=== PATIENT | male | born 1935 | race Caucasian/White ===

== ENCOUNTER 2017-02-26 20:28 | Inpatient (IN) ==
[2017-02-26] MEDS ORDERED: NS 1,000 ML IV ONE (20:54)
[2017-02-26 21:30] LABS: MANUAL DIFF NEEDED? NO
[2017-02-26 21:39] LABS: BASO% 0.7 % (0.0-0.8); EOS# 0.03 X1000 (0.0-0.7); EOS% 0.4 % (0.0-10.0); HEMATOCRIT 40.2 % (42.0-52.0); HEMOGLOBIN 14.3 g/dL (14.0-18.0); IMM GRAN# 0.04 X1000 (0.0-0.04); IMM GRAN% 0.5 % (0.0-0.5); LYMPH# 1.13 X1000 (1.2-3.4); LYMPH% 13.7 % (20.5-51.1); MCH 32.2 PG (27-31); MCHC 35.6 g/dL (33-37); MCV 90.5 FL (81-99); MONO# 0.65 X1000 (0.11-0.59); MONO% 7.9 % (1.7-9.3); NEUT% 76.8 % (42.2-75.2); PLT 270 X1000 (130-400); RBC 4.44 XMIL (4.7-6.1)
[2017-02-26 22:31] LABS: ALBUMIN 4.2 g/dL (3.5-5.0); CALCIUM 9.9 mg/dL (8.8-10.2); POTASSIUM 4.1 mmol/L (3.5-5.1); TOTAL BILIRUBIN 0.55 mg/dL (0.20-1.00); TOTAL PROTEIN 7.3 g/dL (6.3-8.3)
[2017-02-26 22:35] LABS: URINE CULTURE NEEDED? NO; URINE MICRO REVIEW NEEDED? NO; URINE SOURCE CLEAN CATCH
[2017-02-26 22:39] LABS: BILIRUBIN URINE NEGATIVE (NEGATIVE); BLOOD URINE NEGATIVE (NEGATIVE); COLOR STRAW; GLUCOSE URINE >1000 mg/dL (NEGATIVE); LEUKOCYTES URINE NEGATIVE (NEGATIVE); NITRITE URINE NEGATIVE (NEGATIVE); PROTEIN URINE NEGATIVE (NEGATIVE); SP GRAVITY URINE 1.021; TURBIDITY URINE CLEAR (CLEAR); UR EPITHELIAL CELLS <10 /HPF (<10); URINE BACTERIA NEGATIVE /HPF; URINE RBC <10 /HPF (<10); URINE WBC <10 /HPF (<10); UROBILINOGEN URINE NORMAL (NORMAL)
[2017-02-26] MEDS ORDERED: NS 1,000 ML IV SCH (22:55)
[2017-02-26] MEDS ORDERED: NS 1,000 ML ONE (23:01)
[2017-02-27 02:46] LABS: AGAP 21; BUN 24 mg/dL (8-22); CHLORIDE 93 mmol/L (98-107); COSMO 283; POTASSIUM 4.5 mmol/L (3.5-5.1); SODIUM 131 mmol/L (136-145); TCO2 17 mmol/L (25-35)
[2017-02-27] MEDS ORDERED: POTASSIUM CHLORIDE 40 MEQ in 1/2 NS 1,000 ML IV SCH (03:13)
[2017-02-27] MEDS ORDERED: HUMULIN R 100 UNIT in NS 100 ML IV SCH (03:15)
[2017-02-27] MEDS ORDERED: D50W SYRINGE IV PRN (04:37)
[2017-02-27] MEDS ORDERED: TYLENOL PO PRN (04:37)
[2017-02-27] MEDS ORDERED: HUMULIN R IV ONE (04:37)
[2017-02-27] MEDS ORDERED: HUMULIN R 100 UNIT in NS 99 ML IV SCH (04:37)
[2017-02-27] MEDS ORDERED: D5 1/2 NS + KCL 40 MEQ 1,000 ML IV SCH (04:37)
[2017-02-27] MEDS ORDERED: ZOFRAN PO PRN (04:37)
[2017-02-27] MEDS ORDERED: ZOFRAN IV PRN (04:37)
[2017-02-27 04:41] LABS: HEMOGLOBIN A1C 11.7 % (4.8-6.0)
[2017-02-27 04:44] LABS: AGAP 13; BUN 20 mg/dL (8-22); CALCIUM 8.8 mg/dL (8.8-10.2); CHLORIDE 94 mmol/L (98-107); COSMO 279; POTASSIUM 3.9 mmol/L (3.5-5.1); SODIUM 132 mmol/L (136-145); TCO2 25 mmol/L (25-35)
[2017-02-27] MEDS: POTASSIUM CHLORIDE 40 MEQ in 1/2 NS 1,000 ML IV SCH ×3 (05:14→14:07)
[2017-02-27] MEDS: LOVENOX SUBQ SCH (05:19)
[2017-02-27 05:49] LABS: HDL 43 mg/dL (35-55); LDL 91 mg/dL; TRIGLYCERIDES 183 mg/dL (39-160); VLDL 37 mg/dL
[2017-02-27 06:44] LABS: AGAP 15; BUN 19 mg/dL (8-22); CALCIUM 8.6 mg/dL (8.8-10.2); CHLORIDE 94 mmol/L (98-107); COSMO 278; POTASSIUM 3.7 mmol/L (3.5-5.1); SODIUM 133 mmol/L (136-145); TCO2 24 mmol/L (25-35)
[2017-02-27] MEDS: BRILINTA PO SCH ×2 (08:41→21:23)
[2017-02-27] MEDS: ASPIRIN PO SCH (08:41)
[2017-02-27] MEDS: PLENDIL PO SCH (08:41)
[2017-02-27] MEDS: HYZAAR 50/12.5 MG PO SCH (08:41)
[2017-02-27] MEDS: CENTRUM SILVER PO SCH (08:41)
[2017-02-27] MEDS: NS 1,000 ML IV SCH ×2 (08:42→19:27)
[2017-02-27] MEDS: LEVEMIR SUBQ SCH ×2 (08:45→21:24)
[2017-02-27] MEDS: HUMULIN R SUBQ SCH ×3 (11:24→21:23)
--- NOTE | 2017-02-27 11:43 | HISTORY AND PHYSICAL ---
PRIMARY CARE PHYSICIAN: Dr. Marvin Welsh CHIEF COMPLAINT: Generalized weakness, polyuria, polydipsia. HISTORY OF PRESENT ILLNESS: Mr. Dang is a 81-year-old male with past medical history of prostate cancer status post radiation treatment the last one in 2015, hypertension and now diabetes who comes to the hospital complaining of one week of polyuria and polydipsia with increased fatigue. The patient states that approximately 2-3 months ago when he went to see his PCP his A1c was 6.5. Since then, he has been asymptomatic until recently. He denies any change in vision, dizziness except polyuria and polydipsia and generalized weakness. The patient noticed that for the last 2 weeks he has been craving ice water and therefore has been urinating more than usual. REVIEW OF SYSTEMS: Negative except as stated above. In the emergency room, he was given 2 L of normal saline and 10 units of insulin. PAST MEDICAL HISTORY: Incontinence, prostate cancer status in April 2016. Hypertension. PAST SURGICAL HISTORY: Stent placement in both legs. Multiple back surgeries in the lumbar and cervical region. ALLERGIES: Sulfa, antibiotics and penicillin. HOME MEDICATIONS: 1. Lupron 22.5 mg 1 dose IM. 2. Losartan/hydrochlorothiazide 100 mg/25 mg 1 tablet oral daily. 3. Felodipine 10 mg oral daily. 4. 90 mg p.o. twice a day. 5. Multivitamins. 6. Simvastatin 40 mg p.o. at bedtime. 7. Aspirin 81 mg tablet oral daily. SOCIAL HISTORY: The patient stopped smoking in 1992. Denies using alcohol or drugs. FAMILY HISTORY: Mother of colon cancer and father had a myocardial infarction. PHYSICAL EXAMINATION: VITAL SIGNS: Temperature 97.7 degrees, pulse 77, respirations 19, blood pressure 116/79, oxygen saturation 97% on room air. GENERAL: Patient is alert and oriented x3. No acute distress. HEENT: Head is normocephalic, atraumatic. Eyes, PERRLA. Dryish mucous membranes. NECK: Supple. PULMONARY: Well ventilated bilaterally. No wheezing, rales, or crackles. CARDIOVASCULAR: S1, S2. No rubs, murmurs, or gallops. ABDOMEN: Soft, nondistended, nontender. EXTREMITY: No lower extremity edema. Normal range of motion. NEUROLOGIC: Cranial nerves 2-12 grossly intact. No focal deficits. PSYCHIATRIC: Normal mood and affect. LABORATORY DATA: White blood cell count 8.2, hemoglobin 14.3, hematocrit 40.2, platelets 270. Sodium 127, corrected sodium 135, potassium 4.1, anion gap 24, BUN 29, creatinine 1.3. Initial glucose 617. LFTs within normal limits. Urinalysis is negative for UTI, positive for glucose greater than 1000 and positive for ketones. No imaging was done. ASSESSMENT AND PLAN: 1. Hyperosmolar hyperglycemic state. According to the patient, he was not aware that he is diabetic. In the emergency room he already received 2 L of normal saline. A second chemistry set is pending. For right now, we will continue patient on fluids. We will likely switch him to half-normal saline until he is glucose levels reach approximately 300 and then we will likely switch him to 5% dextrose with half-normal saline. We will start insulin at 7.4 units/hour and we will start replacing potassium as well. 2. Diabetes type 2. A1c is pending. Once the anion gap closes and the patient is no longer an insulin drip, he will likely need basal insulin and diabetic teaching. 3. Acute kidney injury. Likely secondary due to the hyperosmolar hyperglycemic state. We will provide fluids and monitor renal function. 4. Hypertension. We will continue home medication losartan/hydrochlorothiazide. cc: MD Marvin Wu
[2017-02-27 12:08] LABS: AGAP 15; BUN 18 mg/dL (8-22); CALCIUM 8.7 mg/dL (8.8-10.2); CHLORIDE 96 mmol/L (98-107); COSMO 283; POTASSIUM 4.6 mmol/L (3.5-5.1); SODIUM 136 mmol/L (136-145); TCO2 25 mmol/L (25-35)
--- NOTE | 2017-02-27 15:24 | PROGRESS NOTE ---
DATE: 02/27/2017 Dictating progress note MR Purvis and emily counters [id number]. SUBJECTIVE: Mr. Dang is a 81-year-old was brought I think early this morning or yesterday, his doctor is Dr. Armaan Welsh, he had generalized weakness, polyuria, polydipsia. PAST MEDICAL HISTORY: Of prostate cancer status post radiation treatment last 1 was 2015, hypertension and new onset diabetes. He has been told he had been prediabetic I think his last hemoglobin A1c was 6.5 but he presented after 2 weeks of craving water, polydipsia, polyuria, just generally feeling bad and found to have hyperosmolar hyperglycemia, was given some fluids and he has felt much better. Began on some insulin. EXAM: Vital signs: Today his son was in the room, temperature 98 degrees, pulse 63, respirations 18, blood pressure 145/63. Eyes: Pupils are equal, round. Lungs: Clear in all lung samaniego. Cardiovascular: Regular rhythm, rate without murmur, S3. Abdomen: Soft. Skin: Warm and dry. Height 5 feet 7 inches. LAB: Chemistries this morning sodium 136, potassium 4.6, chloride 96, BUN 18, creatinine 0.8, blood sugars 310, 270, 290, 215, 268, 258, when he 1st presented I think his blood sugar was in the 600s, no real acidosis, lipid profile was obtained, LDL was 91, HDL 43. ASSESSMENT/PLAN: 1. Hyperosmolar hyperglycemia doing very well. He began on some insulin, will begin on I think split dosing and he is on insulin detemir 30 units subcu b.i.d. and I may go to 70/30 start that in the morning. 2. He is on Brilinta, think this is for his legs. 3. Hypertension. Blood pressure well controlled. 4. History of prostate cancer. His lab, renal function looks good. cc: Jonathan Bowman MD
[2017-02-27 15:45] LABS: AGAP 11; BUN 19 mg/dL (8-22); CALCIUM 8.8 mg/dL (8.8-10.2); CHLORIDE 96 mmol/L (98-107); COSMO 275; SODIUM 133 mmol/L (136-145); TCO2 26 mmol/L (25-35)
[2017-02-27 19:04] LABS: CALCIUM 8.5 mg/dL (8.8-10.2); POTASSIUM 3.5 mmol/L (3.5-5.1)
[2017-02-27] MEDS: ZOCOR PO SCH (21:23)
[2017-02-28 05:06] LABS: MANUAL DIFF NEEDED? NO
[2017-02-28 05:08] LABS: BASO% 0.6 % (0.0-0.8); EOS# 0.27 X1000 (0.0-0.7); EOS% 3.9 % (0.0-10.0); HEMATOCRIT 36.6 % (42.0-52.0); HEMOGLOBIN 13.2 g/dL (14.0-18.0); IMM GRAN# 0.03 X1000 (0.0-0.04); IMM GRAN% 0.4 % (0.0-0.5); LYMPH# 0.97 X1000 (1.2-3.4); LYMPH% 14.2 % (20.5-51.1); MCH 32.5 PG (27-31); MCHC 36.1 g/dL (33-37); MCV 90.1 FL (81-99); MONO# 0.62 X1000 (0.11-0.59); MONO% 9.1 % (1.7-9.3); MPV 11.3 FL (7.4-10.4); NEUT% 71.8 % (42.2-75.2); PLT 198 X1000 (130-400); RBC 4.06 XMIL (4.7-6.1)
[2017-02-28 05:20] LABS: HEMOGLOBIN A1C 11.5 % (4.8-6.0)
[2017-02-28 05:37] LABS: AGAP 10; ALBUMIN 3.4 g/dL (3.5-5.0); BUN 15 mg/dL (8-22); CHLORIDE 99 mmol/L (98-107); COSMO 272; MAGNESIUM 2.1 mg/dL (1.5-2.7); POTASSIUM 3.2 mmol/L (3.5-5.1); SODIUM 134 mmol/L (136-145); TCO2 25 mmol/L (25-35)
[2017-02-28 05:44] LABS: FREE T4 1.24 ng/dL (0.93-1.70)
[2017-02-28] MEDS: HUMULIN R SUBQ SCH ×4 (06:19→20:33)
[2017-02-28] MEDS: NS 1,000 ML IV SCH ×2 (07:52→17:48)
[2017-02-28] MEDS ORDERED: POTASSIUM CHLORIDE 20% LIQUID PO ONE ×3 (08:29→14:00)
--- NOTE | 2017-02-28 09:11 | PROGRESS NOTE ---
DATE: 02/28/2017 SUBJECTIVE: This is a 81-year-old. Feels much better this morning. No nausea. No abdominal discomfort. He did describe a little discomfort in the back of his throat and says about 2 hours after eating he has a little bit of discomfort around the xiphoid process, epigastric area, but overall feels much better. He is awake and alert. He is oriented x3. OBJECTIVE: Vital signs: On exam today, sitting up on the side of bed eating his breakfast. Vital signs: Temperature 97.8 degrees, pulse 64, respirations 18, blood pressure 143/57. HEENT: His conjunctivae are pink. Neck: CVP less than 6 cm. Lungs: Clear in all lung samaniego. Cardiovascular: Regular rhythm and rate without murmur or S3. Abdomen: Soft. Skin: Warm and dry. Intake and output: Good urine output, over 3 L. LAB: From this morning, white count 6,840, hematocrit 36, platelet count 198,000. Sodium 134, potassium 3.2, chloride 99, BUN 15, creatinine 0.9, magnesium is 2.1. Calculated A1c was 11.5. Blood sugar is coming down to the 100s, between 100 and 150 range. The last 2 blood sugars were 150 and 105. ASSESSMENT AND PLAN: 1. Hyperosmolar hyperglycemia. Getting plenty of fluid. Renal function good. Blood sugar is coming down nicely. Was started detemir 30 units b.i.d. We will watch and see what his sugars do today. I think he can probably go home tomorrow. I will continue normal saline at 100 mL an hour. No sign of acidosis. 2. Hypercholesterolemia. Aware. 3. He is on Brilinta and I believe that is for peripheral vascular disease. 4. To review his past medical history, he has had a stent placed in both legs, multiple back surgeries in the lumbar and cervical region, history of prostate cancer with radiation treatment. We are going to see if we can stop all of his lab. I do think we will supplement some potassium today. cc: Jonathan Bowman MD
[2017-02-28] MEDS: HYZAAR 50/12.5 MG PO SCH (09:17)
[2017-02-28] MEDS: BRILINTA PO SCH ×2 (09:18→20:33)
[2017-02-28] MEDS: CENTRUM SILVER PO SCH (09:18)
[2017-02-28] MEDS: PLENDIL PO SCH (09:18)
[2017-02-28] MEDS: LEVEMIR SUBQ SCH ×2 (09:18→20:33)
[2017-02-28] MEDS: ASPIRIN PO SCH (09:18)
[2017-02-28] MEDS: LOVENOX SUBQ SCH (09:21)
[2017-02-28] MEDS ORDERED: INSULIN PEN NEEDLES ONE (20:20)
[2017-02-28] MEDS: ZOCOR PO SCH (20:33)
[2017-03-01] MEDS: NS 1,000 ML IV SCH (03:43)
[2017-03-01] MEDS: HUMULIN R SUBQ SCH (06:23)
[2017-03-01 08:09] VITALS: BP 166/78
[2017-03-01] MEDS: BRILINTA PO SCH (08:22)
[2017-03-01] MEDS: LOVENOX SUBQ SCH (08:22)
[2017-03-01] MEDS: ASPIRIN PO SCH (08:22)
[2017-03-01] MEDS: CENTRUM SILVER PO SCH (08:22)
[2017-03-01] MEDS: PLENDIL PO SCH (08:22)
[2017-03-01] MEDS: LEVEMIR SUBQ SCH (08:23)
[2017-03-01] MEDS: HYZAAR 50/12.5 MG PO SCH (08:23)
--- NOTE | 2017-03-01 09:09 | DISCHARGE SUMMARY ---
ADMISSION DATE: 02/27/2017 DISCHARGE DATE: 03/01/2017 PRIMARY CARE PHYSICIAN: Marvin Welsh. HOSPITAL COURSE: He came in on 02/27/2017 with general weakness, polyuria, and polydipsia. He has a history of prostate cancer status post radiation treatment. Last one was in 2016. He was told he had prediabetes or dysmetabolic syndrome, I believe and presented to the hospital with a sugar of 600, and 1 to 2-week history of polyuria or polydipsia, increased fatigue, and there was some confusion, found to be in hyperosmolar- hyperglycemic condition, admitted, given IV fluids and started on IV insulin drip until his sugars came below 200, then they put him on sliding scale insulin, Humulin regular. He was begun on Levemir insulin twice a day. [place] he was ready go home on 03/01/2017. I want him to follow up with his sugars, check sugars once a day, in a pattern schedule, try to check-in before breakfast, lunch, supper, and then at bedtime. He is on insulin, detemir 30 units subcutaneously b.i.d. If you look at his last sugars, he is 355, 218, 134, and 10, so appears to be coming down nicely. LAB: On the , creatinine was 0.9. I did check a hemoglobin A1c, and it was 11. Blood counts otherwise and electrolytes look good. DISCHARGE MEDICATIONS: He will take aspirin 81 mg a day, Plendil 10 mg a day, hydrochlorothiazide/losartan 50/12.5 one a day, Insulin detemir or Levemir 30 units subcutaneously b.i.d. Actually, I will let him go home on 20 b.i.d. his last sugar was 100, and I do not want his sugars go too low. He has been instructed that if he is not eating, he needs to cut that insulin in half. Multivitamin Centrum Silver 1 a day, Zocor 40 mg at bedtime, and Brilinta 90 mg b.i.d. 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 He will follow up with primary care in the next 4 weeks. cc: Jonathan Bowman MD
--- NOTE | 2017-03-08 04:20 | PROVIDER DOCUMENTATION ---
This chart was entered by Carleen José Scribe, acting as scribe for Ivan Pires MD. HPI-General Adult - General Chief Complaint: High Blood Sugar Stated Complaint: HIGH BLOOD SUGAR Time Seen by Provider: 02/26/17 20:54 Source: patient Allergies/Adverse Reactions: Patient Allergies Allergy/AdvReac Type Severity Reaction Status Date / Time Penicillins Allergy Unknown Verified 03/08/17 02:24 Sulfa (Sulfonamide Allergy Unknown Verified 03/08/17 02:24 Antibiotics) Home Medications: Home Medication List Medication Instructions Recorded Confirmed Last Taken Type Aspirin 81 mg PO DAILY 02/26/17 03/08/17 03/07/17 History Felodipine E.r. [Plendil] 10 mg PO DAILY 02/26/17 03/08/17 03/07/17 History Leuprolide Acetate [Lupron Depot] 1 dose IM DIRECTED 02/26/17 03/08/17 History Losartan/Hydrochlorothiazide 1 each PO DAILY 02/26/17 03/08/17 03/07/17 History [Losartan-Hctz 100-25 mg Tab] Multivit-Min/FA/Lycopen/Lutein 1 each PO DAILY 02/26/17 03/08/17 03/07/17 History [Centrum Silver Men Tablet] SIMVAstatin [Zocor] 40 mg PO QHS 02/26/17 03/08/17 03/07/17 History Ticagrelor [Brilinta] 90 mg PO BID 02/26/17 03/08/17 03/07/17 History Calcium Carbonate/Vit D3 [Caltrate 1 each PO DAILY 02/27/17 03/08/17 03/07/17 History 600 + D] Insulin Detemir [Levemir] 20 unit SUBQ BID #120 insuln.pen 03/01/17 03/08/1707/23 Rx - History of Present Illness -Gen Adult Nature of Presenting Problems: Patient is a 81 year old male who presents in the ED with complaints of hyperglycemia. Patient states he has a history of diabetes, and states for the last two weeks he has had increased thirst and urination. He also states he has been drinking "between a quart and a gallon of water every hour," and states he is also incontinent of urine. He reports his blood sugar was greater than 600 upon arrival in ED, and reports history of recurrent prostate cancer with treatments. He denies any other symptoms. Location of Pain/Injury: reports: none Pain Radiation: reports: no radiation Quality of Pain: reports: none Severity: reports: mild, moderate Onset/Duration: reports: gradual (x2 weeks) Timing: reports: still present, changing over time, getting worse Context/Activities at Onset: reports: none Modifying Factors: improves with: nothing Associated Symptoms: reports: other (high blood sugar; polyuria, increased thirst) Similar Symptoms Previously?: No Recently seen or treated by another doctor?: No - Diabetes Related Context Context: reports: high blood sugar Review of Systems - Adult - REVIEW OF SYSTEMS - ADULT Constitutional: reports: see HPI, other (increased thirst, hyperglycemia) Eyes: reports: no symptoms reported Ears, Nose, Mouth & Throat: reports: no symptoms reported Cardiovascular: reports: no symptoms reported Respiratory: reports: no symptoms reported Gastrointestinal: reports: no symptoms reported Genitourinary: reports: see HPI, frequency, other (polyuria) Musculoskeletal: reports: no symptoms reported Integumentary: reports: no symptoms reported Neurological: reports: no symptoms reported Psychiatric: reports: no symptoms reported Endocrine: reports: no symptoms reported Hematologic/Lymphatic: reports: no symptoms reported Allergic/Immunologic: reports: no symptoms reported All Other Systems: Reviewed and Negative Past History - Adult - PAST MEDICAL HISTORY-ADULT Review of Records: reports: Nursing Assessment Review, Medications Reviewed Major Childhood Illnesses: reports: denies history Cardiovascular: reports: PVD Respiratory: reports: denies history Gastrointestinal: reports: denies history Obstetrical/Gynecological: reports: denies history Genitourinary: reports: prostate cancer Musculoskeletal: reports: denies history Neurological: reports: denies history Endocrine/Immune: reports: Diabetes Other Conditions: reports: denies history - PRIOR SURGERIES/PROCEDURES Surgical/Procedure History: reports: back/neck (back and neck surgery), other ( prostate) - IMMUNIZATION STATUS Childhood Immunizations: See Nurse Assessment Flu Vaccine: See Nurse Assessment - FAMILY HISTORY Family History: reviewed, not pertinent - SOCIAL HISTORY Smoking: non-smoker, quit greater than 1 year Substance Use: none/never Alcohol Use Frequency: never Living Situation: family Physical Exam-General - PHYSICAL EXAM-ADULT Initial Vital Signs Reviewed: Yes - CONSTITUTIONAL General Appearance: alert, no apparent distress, other (appears dehydrated) - EYES Eyes: PERRL/EOMI, pink conjunctivae - HEAD, EARS, NOSE, MOUTH & THROAT HENMT: normocephalic/atraumatic, moist mucous membranes - NECK Neck: full range of motion, supple - RESPIRATORY Respiratory: chest non-tender, lungs clear, normal breath sounds, no pleuratic chest pain, no respiratory distress, no accessory muscle use - CARDIOVASCULAR Cardiovascular: regular rate, rhythm, no edema, no gallop, no JVD, no murmur - GASTROINTESTINAL (ABDOMEN) Abdominal Exam: non tender, soft, no organomegaly, no pulsatile mass - LYMPHATIC Lymphatic: no adenopathy - MUSCULOSKELETAL Back Exam: normal inspection, no CVA tenderness, no vertebral tenderness Extremity: normal range of motion, non-tender, normal inspection, no pedal edema , normal capillary refill - SKIN Integumentary: normal color, warm/dry - NEUROLOGIC Neurologic: grossly normal, no motor/sensory deficits - PSYCHIATRIC Psych/Mental Status: normal mood/affect, oriented x 3 Progress - PLAN OF CARE/RESULTS Progress/Plan/Lab Results: Vital Signs - 8 hr 02/26/17 20:32 02/26/17 20:59 Temperature 97.7 F Pulse Rate 90 77 Respiratory Rate 20 19 Blood Pressure 162/71 169/79 O2 Sat by Pulse Oximetry 100 97 Laboratory Results - last 24 hr 02/26/17 02/26/17 20:40 21:10 WBC 8.22 RBC 4.44 L Hgb 14.3 Hct 40.2 L MCV 90.5 MCH 32.2 H MCHC 35.6 RDW Std Deviation 12.1 Plt Count 270 MPV 12.0 H Immature Gran % (Auto) 0.5 Neut % (Auto) 76.8 H Lymph % (Auto) 13.7 L [place] % (Auto) 7.9 Eos % (Auto) 0.4 Baso % (Auto) 0.7 Immature Gran # (Auto) 0.04 Neut # (Auto) 6.31 Lymph # (Auto) 1.13 L [place] # (Auto) 0.65 H Eos # (Auto) 0.03 Baso # (Auto) 0.06 POC Glucose 500 H Orders Category Date Time Status IV Insertion ORDERED Care 02/26/17 20:43 Completed CBC WITH ELECTRONIC DIFF [HEME] Stat Lab 02/26/17 21:10 Completed COMPREHENSIVE METABOLIC PANEL [CHEM] Stat Lab 02/26/17 21:10 Received UA NIMS W/REFLEX CULT [URINALYSIS] Stat Lab 02/26/17 20:43 Uncollected 0.9% Sodium Chloride Inj [Ns] 1,000 ml Med 02/26/17 20:54 Active IV 999 mls/hr Result Diagrams: 02/28/17 04:55 02/28/17 04:55 Departure - Departure Date of Disposition Decision: 02/26/17 Time of Disposition Decision: 22:00 DIAGNOSIS: Hyperosmolar non-ketotic state in patient with type 2 diabetes mellitus Disposition: ADMITTED INPATIENT 09 Certified Medical Emergency: Emergent Condition: Stable - Critical Care Note This patient required my direct & personal management of CC.: No Attestation - Physician/ GUALBERTO Attestation Patient care was provided by Advanced Practice Provider:: No The physician spent face to face time with patient:: Yes Advanced Practice Provider documentation review:: Supervising physician onsite and consulted in the evaluation and care of this patient. The physician did have a face to face encounter with the patient. This chart was documented by the indicated scribe, (Carleen José Scribe) and accurately reflects the services I performed and decisions made by me, Ivan Pires MD, as attested by the provider's signature.
== END 2017-03-01 10:15 | disposition home or self-care (01) ==
LOC: ED 20:28 → SUATTDRO 02-27 02:36 → 3S 02-27 02:36
PROVIDERS: ATTEND Emergency Medicine

== ENCOUNTER 2017-03-08 02:03 | Inpatient (IN) ==
[2017-03-08 02:53] LABS: MANUAL DIFF NEEDED? NO
[2017-03-08 02:58] LABS: BASO% 0.8 % (0.0-0.8); EOS# 0.29 X1000 (0.0-0.7); EOS% 5.5 % (0.0-10.0); HEMATOCRIT 35.9 % (42.0-52.0); HEMOGLOBIN 12.2 g/dL (14.0-18.0); IMM GRAN# 0.04 X1000 (0.0-0.04); IMM GRAN% 0.8 % (0.0-0.5); LYMPH# 0.67 X1000 (1.2-3.4); LYMPH% 12.7 % (20.5-51.1); MCV 94.2 FL (81-99); MONO# 0.78 X1000 (0.11-0.59); MONO% 14.8 % (1.7-9.3); NEUT% 65.4 % (42.2-75.2); PLT 242 X1000 (130-400); RBC 3.81 XMIL (4.7-6.1)
[2017-03-08 03:14] LABS: AGAP 14; ALKALINE PHOSPHATASE 67 U/L (32-122); AMYLASE 58 U/L (20-200); BUN 16 mg/dL (8-22); CALCIUM 9.3 mg/dL (8.8-10.2); CHLORIDE 95 mmol/L (98-107); COSMO 277; GOT 28 U/L (10-34); GPT 50 U/L (10-44); LIPASE 32 U/L (13-60); SODIUM 134 mmol/L (136-145); TCO2 25 mmol/L (25-35); TOTAL BILIRUBIN 0.54 mg/dL (0.20-1.00); TOTAL PROTEIN 7.1 g/dL (6.3-8.3)
[2017-03-08 04:04] LABS: INR 0.96; PROTIME 10.1 Seconds (9.2-11.7)
[2017-03-08 04:18] LABS: URINE CULTURE NEEDED? NO; URINE MICRO REVIEW NEEDED? NO; URINE SOURCE CLEAN CATCH
[2017-03-08 04:22] LABS: BILIRUBIN URINE NEGATIVE (NEGATIVE); BLOOD URINE NEGATIVE (NEGATIVE); COLOR YELLOW; GLUCOSE URINE 500 mg/dL (NEGATIVE); LEUKOCYTES URINE NEGATIVE (NEGATIVE); NITRITE URINE NEGATIVE (NEGATIVE); PROTEIN URINE NEGATIVE (NEGATIVE); SP GRAVITY URINE 1.014; TURBIDITY URINE CLEAR (CLEAR); UROBILINOGEN URINE NORMAL (NORMAL)
[2017-03-08 04:23] LABS: UR EPITHELIAL CELLS <10 /HPF (<10); URINE BACTERIA NEGATIVE /HPF; URINE RBC <10 /HPF (<10); URINE WBC <10 /HPF (<10)
--- NOTE | 2017-03-08 04:58 | PROVIDER DOCUMENTATION ---
HPI-Abdominal Pain/GI Problem - General Chief Complaint: Rectal Bleeding Stated Complaint: RECATL BLEEDING Time Seen by Provider: 03/08/17 02:55 Allergies/Adverse Reactions: Patient Allergies Allergy/AdvReac Type Severity Reaction Status Date / Time Penicillins Allergy Unknown Verified 03/08/17 02:24 Sulfa (Sulfonamide Allergy Unknown Verified 03/08/17 02:24 Antibiotics) Home Medications: Home Medication List Medication Instructions Recorded Confirmed Last Taken Type Aspirin 81 mg PO DAILY 02/26/17 03/08/17 03/07/17 History Felodipine E.r. [Plendil] 10 mg PO DAILY 02/26/17 03/08/17 03/07/17 History Leuprolide Acetate [Lupron Depot] 1 dose IM DIRECTED 02/26/17 03/08/17 History Losartan/Hydrochlorothiazide 1 each PO DAILY 02/26/17 03/08/17 03/07/17 History [Losartan-Hctz 100-25 mg Tab] Multivit-Min/FA/Lycopen/Lutein 1 each PO DAILY 02/26/17 03/08/17 03/07/17 History [Centrum Silver Men Tablet] SIMVAstatin [Zocor] 40 mg PO QHS 02/26/17 03/08/17 03/07/17 History Ticagrelor [Brilinta] 90 mg PO BID 02/26/17 03/08/17 03/07/17 History Calcium Carbonate/Vit D3 [Caltrate 1 each PO DAILY 02/27/17 03/08/17 03/07/17 History 600 + D] Insulin Detemir [Levemir] 20 unit SUBQ BID #120 insuln.pen 03/01/17 03/08/1707/23 Rx - History of Present Illness-ABD Nature of Presenting Problems: 81 yo WM began having bloody diarrhea around 1 am today. He has a past history of prostate cancer, has undergone a prostatectoy and aggressive radiation . 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 He is on Brilinta by his vascular surgeon for severe PVD in addition to ASA. Onset/Duration: reports: just prior to arrival Timing: reports: still present Activities at Onset: reports: sleep Exposure to sick contacts?: No Modifying Factors: improves with: other (anticoagulant therapy) Associated Symptoms: reports: denies symptoms, diarrhea Rectal Bleeding: reports: blood mixed with stool Rectal Pain: reports: none Bruising or Bleeding Gums?: No Similar Symptoms Previously?: No Recently seen or treated by another doctor?: Yes (rad oncology) Review of Systems - Adult - REVIEW OF SYSTEMS - ADULT Constitutional: reports: no symptoms reported Eyes: reports: no symptoms reported Ears, Nose, Mouth & Throat: reports: no symptoms reported Cardiovascular: reports: poor circulation Respiratory: reports: no symptoms reported Gastrointestinal: reports: see HPI, rectal bleeding. denies: difficulty swallowing, frequent heartburn, vomiting Genitourinary: reports: see HPI Musculoskeletal: reports: no symptoms reported Integumentary: reports: no symptoms reported Neurological: reports: no symptoms reported Psychiatric: reports: no symptoms reported Past History - Adult - PAST MEDICAL HISTORY-ADULT Review of Records: reports: Old Records Reviewed, Nursing Assessment Review, Medications Reviewed Cardiovascular: reports: HTN, heart valve problem Respiratory: reports: denies history Gastrointestinal: reports: colitis Genitourinary: reports: prostate cancer Musculoskeletal: reports: denies history Neurological: reports: denies history Physical Exam-General - PHYSICAL EXAM-ADULT Initial Vital Signs Reviewed: Yes - CONSTITUTIONAL General Appearance: appears well, alert - EYES Eyes: PERRL/EOMI, pink conjunctivae - HEAD, EARS, NOSE, MOUTH & THROAT HENMT: normal ENT inspection - NECK Neck: non-tender, full range of motion, supple - RESPIRATORY Respiratory: chest non-tender, lungs clear - CARDIOVASCULAR Cardiovascular: regular rate, rhythm, no edema, no gallop, no JVD, systolic murmur - GASTROINTESTINAL (ABDOMEN) Abdominal Exam: normal bowel sounds, non tender, soft, no organomegaly, no pulsatile mass - LYMPHATIC Lymphatic: no adenopathy - MUSCULOSKELETAL Back Exam: normal inspection - SKIN Integumentary: normal color, normal turgor - NEUROLOGIC Neurologic: grossly normal Progress - PLAN OF CARE/RESULTS Progress/Plan/Lab Results: Vital Signs - 8 hr 03/08/17 02:06 Temperature 97.9 F Pulse Rate 91 H Respiratory Rate 18 Blood Pressure 163/67 O2 Sat by Pulse Oximetry 100 Laboratory Results - last 24 hr 03/08/17 03/08/17 03/08/17 02:40 02:40 02:40 WBC 5.26 RBC 3.81 L Hgb 12.2 L Hct 35.9 L MCV 94.2 MCH 32.0 H MCHC 34.0 RDW Std Deviation 12.9 Plt Count 242 MPV 10.0 Immature Gran % (Auto) 0.8 H Neut % (Auto) 65.4 Lymph % (Auto) 12.7 L Bureau % (Auto) 14.8 H Eos % (Auto) 5.5 Baso % (Auto) 0.8 Immature Gran # (Auto) 0.04 Neut # (Auto) 3.44 Lymph # (Auto) 0.67 L Bureau # (Auto) 0.78 H Eos # (Auto) 0.29 Baso # (Auto) 0.04 PT 10.1 INR 0.96 Sodium 134 L Potassium 5.0 Chloride 95 L Carbon Dioxide 25 Anion Gap 14 BUN 16 Creatinine 1.0 Estimated GFR/1.73 m2 > 60 BUN/Creatinine Ratio 16 Glucose 241 H Calculated Osmolality 277 Calcium 9.3 Total Bilirubin 0.54 AST 28 ALT 50 H Alkaline Phosphatase 67 Total Protein 7.1 Albumin 4.0 Globulin 3.1 Albumin/Globulin Ratio 1.3 Amylase 58 Lipase 32 Urine Source Urine Color Urine Turbidity Urine pH Ur Specific [place] Urine Protein Ur Glucose (Stick) Ur Ketones (Stick) Urine Blood Urine Nitrite Urine Bilirubin Urobilinogen Dipstick Urine Leukocytes Urine WBC (Auto) Urine RBC (Auto) U Epithel Cells (Auto) Urine Bacteria (Auto) 03/08/17 04:00 WBC RBC Hgb Hct MCV MCH MCHC RDW Std Deviation Plt Count MPV Immature Gran % (Auto) Neut % (Auto) Lymph % (Auto) Bureau % (Auto) Eos % (Auto) Baso % (Auto) Immature Gran # (Auto) Neut # (Auto) Lymph # (Auto) Bureau # (Auto) Eos # (Auto) Baso # (Auto) PT INR Sodium Potassium Chloride Carbon Dioxide Anion Gap BUN Creatinine Estimated GFR/1.73 m2 BUN/Creatinine Ratio Glucose Calculated Osmolality Calcium Total Bilirubin AST ALT Alkaline Phosphatase Total Protein Albumin Globulin Albumin/Globulin Ratio Amylase Lipase Urine Source CLEAN CATCH Urine Color YELLOW Urine Turbidity CLEAR Urine pH 7.0 Ur Specific [place] 1.014 Urine Protein NEGATIVE Ur Glucose (Stick) 500 A Ur Ketones (Stick) NEGATIVE Urine Blood NEGATIVE Urine Nitrite NEGATIVE Urine Bilirubin NEGATIVE Urobilinogen Dipstick NORMAL Urine Leukocytes NEGATIVE Urine WBC (Auto) <10 Urine RBC (Auto) <10 U Epithel Cells (Auto) <10 Urine Bacteria (Auto) NEGATIVE Orders Category Date Time Status Saline Loc DIRECTED Care 03/08/17 02:11 Active NPO Diet 03/08/17 02:[address] ABD/PELVIS W/ IV CONT ONLY [CT] Stat Exams 03/08/17 03:24 Taken AMYLASE [CHEM] Stat Lab 03/08/17 02:40 Completed CBC WITH ELECTRONIC DIFF [HEME] Stat Lab 03/08/17 02:40 Completed COMPREHENSIVE METABOLIC PANEL [CHEM] Stat Lab 03/08/17 02:40 Completed LIPASE [CHEM] Stat Lab 03/08/17 02:40 Completed PROTIME WITH INR [COAG] Stat Lab 03/08/17 02:40 Completed URINALYSIS W/POSS RFLX CULT-1 [URINALYSIS] Stat Lab 03/08/17 04:00 Completed Result Diagrams: 03/08/17 02:40 03/08/17 02:40 - CT/MRI 1 CT Study: Abdomen, Pelvis Impression: Abnormal (colonic divertculi 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), See EMR Report (colonic diverticuli and rad induced colonic thickening) - CONSULTS/PCP/HOSPITALIST Notification #1 *Consult/PCP/Hospitalist*: Dr Driscoll Time Discussed: 05:43 Consult Disposition: Will see in ED Departure - Departure Date of Disposition Decision: 03/08/17 Time of Disposition Decision: 05:19 DIAGNOSIS: Lower GI bleed Disposition: ADMITTED INPATIENT 09 Certified Medical Emergency: Emergent Condition: Fair Referrals and Follow-Ups: None,PCP [Primary Care Provider] - - Critical Care Note This patient required my direct & personal management of CC.: Yes Total Time (mins): 30 Critical Care Statement: This patient required my direct personal management to treat or rule out processes, the absence of which, could potentiallly result in sudden, clinically significant life or limb threatening deterioration. Attestation - Physician/ GUALBERTO Attestation Patient care was provided by Advanced Practice Provider:: No The physician spent face to face time with patient:: Yes Advanced Practice Provider documentation review:: Supervising physician onsite and consulted in the evaluation and care of this patient. The physician did have a face to face encounter with the patient.
[2017-03-08] MEDS ORDERED: ZOFRAN IV PRN (06:39)
--- NOTE | 2017-03-08 07:28 | Diag Imaging Result Doc PS360 ---
CT ABD/PELVIS W/ IV CONT ONLY - 03/08/2017 INDICATION: lower gi bleed , h/o prostate ca, radiation therapy TECHNIQUE: A CT dose reduction protocol was used. COMPARISON: None FINDINGS: The lung bases are clear. Heart size is normal with no pericardial effusion. There is extensive vascular disease of the entire abdominal aorta and pelvic and femoral artery systems. No aneurysm. There is definitely some stenosis in the distal abdominal aorta and iliac artery systems. There appears to be a stent in the left common iliac artery which is patent. There is also renal artery disease and a stent in the right renal artery. The liver, gallbladder, spleen, pancreas, adrenals, and kidneys are normal. No bowel obstruction or inflammation. Normal appendix. There are prostatectomy changes. There is urinary bladder wall thickening although the bladder is mostly collapsed. Rectum is normal. There are normal-sized pelvic lymph nodes. There are moderate degenerative changes of the spine. No acute or suspicious bony lesion. IMPRESSION: 1. Nonspecific urinary bladder wall thickening. Correlate clinically. 2. Advanced, diffuse vascular disease. Electronically signed by Federico Phoenix 03/08/2017 7:26 AM
--- NOTE | 2017-03-08 07:55 | HISTORY AND PHYSICAL ---
PRIMARY CARE PROVIDER: Dr. Marvin Welsh however the patient will be changing over to the [facility]. He is unsure who he will be seeing there. CHIEF COMPLAINT: Bleeding from rectum. HISTORY OF PRESENT ILLNESS: Mr. Dang is a 81-year-old male who was very recently admitted to our service on 02/27/2017. He has a history of prostate cancer status post prostatectomy and radiation treatment. The last treatment of radiation was in April 2016. He also has hypertension and diabetes type 2 for which he is now 1 insulin-dependent. At any rate, the patient stated that he was over the course of yesterday noticed a little bit of blood when he wiped after a bowel movement and then had a sensation as if he had to go to the bathroom. When he stood blood just gushed down his legs covering his pants. He said that some of it was congealed appearing. It was all bright red. Laboratory data was obtained and his hemoglobin and hematocrit is stable from the last admission. He is 12.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 The patient will be admitted to the medical floor inpatient for further evaluation and treatment. REVIEW OF SYSTEMS: Fourteen point review of systems conducted with the patient. He denied chest pain, nausea, vomiting. He had hematochezia, hematemesis, melena, abdominal pain, dizziness. Pertinent positives listed above in the HPI. All other systems reviewed and found to be negative. PAST MEDICAL HISTORY: 1. 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 2. Hypertension. 3. 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 SURGICAL HISTORY: Prostatectomy, bilateral stent placement in lower extremities secondary to PVD, multiple back surgeries in the lumbar and cervical region. ALLERGIES: Sulfa antibiotics and penicillin. HOME MEDICATIONS: The patient is on aspirin 81 mg and Brilinta 90 mg p.o. b.i.d. Otherwise a list has not been fully reconcile. Nursing to reconcile and place in the computer. SOCIAL HISTORY: Stopped smoking in 1992. Denies alcohol, present tobacco use or illicit drug use. FAMILY HISTORY: Mother of colon cancer. Father of a myocardial infarction. PHYSICAL EXAMINATION: VITAL SIGNS: Temperature 97.9 degrees, pulse 91, respirations 18, blood pressure 161/83, oxygen saturation 100% on room air. GENERAL: A very pleasant 81-year-old, male lying in the ER stretcher. Answers all questions appropriately. HEENT: Head is atraumatic, normocephalic. Pupils equal, round, reactive to light. Extraocular eye movement intact. Sclerae is anicteric. Conjunctivae is pink. Oral mucosa is moist. NECK: Supple. No JVD. No thyromegaly. Trachea is midline. No cervical lymphadenopathy. CARDIAC: S1, S2 appreciated. A 2/6 systolic ejection murmur noted. No gallops. No rubs. ABDOMEN: Soft, nondistended, nontender. Bowel sounds present in all 4 quadrants, hyperactive. No pulsatile mass. No organomegaly. EXTREMITIES: No clubbing, cyanosis, or edema. 2+ pedal pulses bilaterally. NEUROLOGICAL: Alert and orient x3. Cranial nerves 2-12 grossly intact. SKIN: Warm, dry, intact. No acute lesions or rash. GENITOURINARY: Patient incontinent of urine. Otherwise deferred. DIAGNOSTIC DATA: CT of the abdomen and pelvis showed colonic diverticula and radiation induced colonic thickening. LABORATORY DATA: WBC 5.26, hemoglobin 12.2, hematocrit 35.9, platelet count 242,000. PT 10.1, INR 0.96. Sodium 134, potassium 5, chloride 95, carbon dioxide 25 BUN 16, creatinine 1.0, glucose 241. Urine 500 glucose otherwise unremarkable. ASSESSMENT AND PLAN: 1. 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 Hemoglobin and hematocrit is stable. We will hold patient NPO. Start normal saline at 100 mL an hour. Consult GI. We will give Protonix daily. The patient is not having any pain. We will trend hemoglobin and hematocrit. 2. 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 Start sliding scale insulin with fingerstick blood sugar. 3. PVD. We will hold Brilinta at this time and continue aspirin 81 mg starting tomorrow. Brilinta to be restarted when approved by GI. 4. Hypertension. We will start antihypertensives when appropriate. It is noted nursing to reconcile home medications. 5. Hyperlipidemia. Continue Zocor. 6. Anemia, stable from previous admission. Will trend hemoglobin and hematocrit. Further recommendations per patient clinical course. Dictated by ARIANNA Abdi for Boyd Driscoll MD cc: Zacarias C. Christiana, MD Blaise Castro MD Dr. Schmidt
[2017-03-08] MEDS: NS 1,000 ML IV SCH ×2 (07:57→17:41)
[2017-03-08] MEDS: HUMALOG SUBQ SCH ×4 (07:58→23:38)
[2017-03-08] MEDS: PROTONIX IV SCH (07:58)
--- NOTE | 2017-03-08 12:17 | CONSULTATION ---
DATE OF CONSULTATION: 03/08/2017 REASON FOR CONSULTATION: Rectal bleeding. HISTORY OF PRESENT ILLNESS: This is a 81-year-old white male, who was just recently in the hospital a week or 2 ago, and diagnosed with diabetes. He states he was started on Levemir insulin. He had been doing okay until last night. He had woke up with leg cramps, which he has frequently, and he has had trouble sleeping. He has a history of peripheral vascular disease and is followed by Dr. Stauffer. He has plans for stent placement in the next week or 2 to the lower extremity. Patient reports waking up around 1 a.m. He had urgency to have a bowel movement, and had incontinence of bright rectal bleeding. He had also noted some clots. He denied any abdominal pain. No reported nausea or vomiting. His son comes to help him and brought him to the hospital for further evaluation. Today, he has had a couple of episodes of small stools with some small amount of bright red blood noted when he wipes. He has had some blood noted when he wipes on occasion in the past, and he thought it was related to hemorrhoid. He denies problems with constipation or diarrhea. He does state over the last month, he has had some stomach distress and some reflux. He felt like his food was not digesting. He denies ever having an EGD or colonoscopy. He does take Brilinta twice daily and aspirin 81 mg daily for peripheral vascular disease. His last dose of Brilinta was last night on 03/07/2017. PAST MEDICAL HISTORY: History of prostate cancer, status post radiation, hypertension, recently diagnosed diabetes, and was recently discharged from the hospital last week. PAST SURGICAL HISTORY: Prostate surgery and radiation. He has had peripheral vascular stents to the right renal artery and left iliac artery, back surgery, neck surgery, cervical fusion. ALLERGIES: Penicillin and sulfa medications - unknown reaction. HOME MEDICATIONS: Brilinta 90 mg twice daily, Zocor 40 mg every night, Centrum Silver daily, losartan/hydrochlorothiazide 100/25 mg daily, Lupron IM as directed, Levemir 20 units subcutaneous twice daily, Plendil 10 mg daily, Caltrate plus D daily, aspirin 81 mg daily. SOCIAL HISTORY: Quit tobacco use in 1992. He denies alcohol use. He is a . His recently last year. He has 2 sons. He is retired. REVIEW OF SYSTEMS: Per HPI. PHYSICAL EXAMINATION: Vital Signs: Temperature 98.1 degrees, pulse 63, blood pressure 167/58. General: Patient is awake, alert, no acute distress. HEENT: Normocephalic, atraumatic. Pupils equal, round, reactive to light. Sclerae nonicteric. Cardiovascular: Regular rate and rhythm. Abdomen: Soft. Positive bowel sounds. Nontender. Neurological: Cranial nerves 2-12 grossly intact. Patient is awake, alert, oriented to person, place, and time. DIAGNOSTIC RESULTS: Imaging: Abdominal/pelvis CT scan showed nonspecific urinary bladder wall thickening and advanced diffuse vascular disease. There was no noted bowel obstruction or inflammation, normal appendix. LABORATORY: Hematology: WBC 5.26, hemoglobin 12.2, hematocrit 35.9, MCV 94.2, platelets 242,000. Coagulation: Pro-time 10.1, INR 0.96. Chemistry: Sodium 134, potassium 5.0, chloride 95, CO2 25, BUN 16, creatinine 1.0, glucose 241. Total bilirubin 0.54, AST 28, ALT 50, alkaline phosphatase 67, amylase 58, lipase 32. ASSESSMENT AND PLAN: 1. Rectal bleeding. 2. Peripheral vascular disease on anticoagulation, Brilinta and aspirin. 3. Recently diagnosed diabetes. PLAN: Continue symptomatic treatment, supportive care. Monitor hemoglobin and hematocrit. Monitor for active bleeding. His Brilinta has been placed on hold. Will need to hold that for at least 48 hours before proceeding with endoscopies. Will plan for colonoscopy when able. Further plans will be made according to findings. I have discussed the procedure along with benefits and risks with the patient, and he wishes to proceed. I have discussed this case with Dr. Arauz. Further plans to be made by him. Thank you for this consultation. Dictated by ARIANNA Lentz for Romain Arauz MD cc: ARIANNA Osei MD
--- NOTE | 2017-03-08 13:23 | PROGRESS NOTE ---
DATE: 03/08/2017 SUBJECTIVE: Actually following along on this patient admitted to the hospital service. A 81-year- old. To review past medical history, recently in the hospital for hyperglycemia, hyperosmolar syndrome. We had put him on Levemir insulin. Apparently was doing well and then developed sudden onset or discovery of hematochezia, bright red blood. He did not pass out. No fever or chills. PAST MEDICAL HISTORY: 1. Recently diagnosed with diabetes mellitus type 2. Presented with hyperosmolar hyperglycemia syndrome. 2. He has had prostate cancer status post prostate resection and radiation treatment. 3. Peripheral vascular disease for which he has had stent placement in I think both legs. He was on Brilinta. Brilinta has been held. He has not had any further bleeding. Feels good. LABORATORY DATA: This morning, hematocrit 35, hemoglobin 12. That is on presentation. Electrolytes look good. Renal function, creatinine 1.02. OBJECTIVE: Lungs: Clear. Cardiovascular: Regular rhythm and rate without murmur. S3. Abdomen: Soft. Skin: Warm and dry. Weight 170 pounds. ASSESSMENT AND PLAN: 1. Blood per rectum, on Brilinta. Obviously going to hold the Brilinta and will need to investigate colon. This could be a diverticular bleed as well and we may have to decide not to use Brilinta anymore. 2. Peripheral vascular disease. He has been doing well from that standpoint. He has had some stents placed in both legs. 3. Diabetes mellitus type 2 recently diagnosed and his sugars have been doing pretty well. I am going to change him to a split dose 70/30 and maybe just do a baseline Lantus but I will I will put him on a 70/30 regimen. cc: Jonathan Bowman MD
[2017-03-08 15:59] LABS: HEMATOCRIT 33.4 % (42.0-52.0); HEMOGLOBIN 11.2 g/dL (14.0-18.0)
[2017-03-08 21:27] LABS: HEMATOCRIT 34.1 % (42.0-52.0); HEMOGLOBIN 11.3 g/dL (14.0-18.0)
[2017-03-08] MEDS: ZOCOR PO SCH (21:38)
[2017-03-09] MEDS: NS 1,000 ML IV SCH ×2 (03:30→13:33)
[2017-03-09 03:35] LABS: MANUAL DIFF NEEDED? NO
[2017-03-09 03:38] LABS: BASO% 0.2 % (0.0-0.8); EOS# 0.29 X1000 (0.0-0.7); EOS% 6.4 % (0.0-10.0); HEMATOCRIT 32.5 % (42.0-52.0); HEMOGLOBIN 10.9 g/dL (14.0-18.0); IMM GRAN# 0.02 X1000 (0.0-0.04); IMM GRAN% 0.4 % (0.0-0.5); LYMPH# 0.87 X1000 (1.2-3.4); LYMPH% 19.2 % (20.5-51.1); MCH 32.2 PG (27-31); MCHC 33.5 g/dL (33-37); MCV 96.2 FL (81-99); MONO# 0.53 X1000 (0.11-0.59); MONO% 11.7 % (1.7-9.3); MPV 9.8 FL (7.4-10.4); NEUT% 62.1 % (42.2-75.2); PLT 213 X1000 (130-400); RBC 3.38 XMIL (4.7-6.1)
[2017-03-09 04:12] LABS: AGAP 9; BUN 7 mg/dL (8-22); CALCIUM 8.6 mg/dL (8.8-10.2); CHLORIDE 103 mmol/L (98-107); COSMO 275; SODIUM 138 mmol/L (136-145); TCO2 26 mmol/L (25-35)
[2017-03-09] MEDS: PROTONIX IV SCH (06:16)
[2017-03-09] MEDS: HUMALOG SUBQ SCH ×4 (06:16→21:06)
[2017-03-09] MEDS: SODIUM CHLORIDE 0.9% INJ SCH (06:16)
[2017-03-09] MEDS: ASPIRIN PO SCH (09:56)
[2017-03-09] MEDS ORDERED: GOLYTELY PO ONE (14:00)
--- NOTE | 2017-03-09 15:44 | PROGRESS NOTE ---
DATE: 03/09/2017 SUBJECTIVE: Mr. Dang is taking his prep GoLYTELY and seems to be tolerating it well. He has not had any further bleeding. No complaints of pain or shortness of breath. He remained afebrile. OBJECTIVE: Temperature 98.8 degrees, pulse 70, respirations 16, blood pressure 150/60. Lungs are clear anterolateral. Cardiovascular: Regular rhythm and rate without murmur or S3. Abdomen is soft. Skin is warm and dry. Urine output was close to 5 L. I reviewed labs from 03/08/2017. Hematocrit stable at 32. Blood sugar is 158, 117, 265. ProTime was 10.1. Note, the TSH was 7.68. We will check a T4 and TSH before he leaves. ASSESSMENT AND PLAN: 1. Blood per rectum. He was on Brilinta for peripheral vascular disease. We have held the Brilinta. He has not had any further bleeding. Hematocrit is stable. Plan is for colonoscopy tomorrow. He is undergoing prep at the present time. 2. Peripheral vascular disease with stents in both lower extremities. He was on Brilinta which we are holding. 3. Diabetes mellitus, type 2. He had recently been admitted for hyperosmolar hyperglycemic event, and we had put him on some insulin. He is on sliding scale at the present time. With him not eating and then prepping, I think I will wait to initiate his insulin back. Hematocrit appears to be stable. cc: Jonathan Bowman MD
[2017-03-09] MEDS: ZOCOR PO SCH (21:05)
[2017-03-10] MEDS: NS 1,000 ML IV SCH (05:26)
[2017-03-10] MEDS: HUMALOG SUBQ SCH ×2 (06:25→11:04)
[2017-03-10] MEDS: SODIUM CHLORIDE 0.9% INJ SCH (06:26)
[2017-03-10] MEDS: PROTONIX IV SCH (06:26)
[2017-03-10] MEDS ORDERED: XYLOCAINE-MPF 2% ONE (07:55)
[2017-03-10] MEDS ORDERED: DIPRIVAN 1% ONE (07:55)
--- NOTE | 2017-03-10 09:21 | OPERATIVE NOTE ---
PROCEDURE DATE: 03/10/2017 PROCEDURE: Colonoscopy. PREOPERATIVE DIAGNOSIS: Lower gastrointestinal bleed. POSTOPERATIVE DIAGNOSIS: Radiation proctitis, otherwise normal colon. HISTORY: This is a 81-year-old gentleman admitted to hospital with rectal bleeding. His hemoglobin and hematocrit dropped slightly. He is mildly anemic. He has never had a colonoscopy before. With his presentation and since he has never had a colonoscopy, we will proceed with diagnostic therapeutic colonoscopy. DESCRIPTION OF PROCEDURE: Informed consent obtained from the patient. Procedure risks, benefits, and alternatives were explained in layman's terms. He understood and all his pertinent questions were answered. Patient was brought to the endoscopy unit and was premedicated as per Anesthesia. After adequate sedation, while he was lying in left lateral position, digital rectal exam was performed, which was normal. Scope was then gently introduced into the rectum and advanced under direct vision through the parts of colon, all the way up to the cecum. The cecum was identified by ileocecal valve and appendiceal orifice. The scope was then withdrawn, paying careful attention to details. Preparation was good. The visualized portion of the colon revealed normal cecum and ascending colon, transverse colon, and descending colon. Minor diverticulosis was seen in the sigmoid colon without signs of active bleeding or stigmata. No polyps or tumors or cancers were seen throughout the colon. 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 But it was not actively bleeding. Retroflex view of rectum revealed no pathology. Scope was then removed. Patient tolerated the procedure well. No complications noted. Patient was then transferred to the recovery area in a stable condition. IMPRESSION: 1. Radiation proctitis/telangiectasia. 2. Mild diverticulosis sigmoid colon, otherwise normal colonoscopy. 3. His rectal bleeding most likely was from his telangiectasia. RECOMMENDATION: 1. I would start him on 2 Metamucil capsules every day. 2. Encouraged him to drink plenty of water daily. 3. I will resume his diabetic diet. From gastrointestinal point of view, he can be discharged and to be followed up with the office as needed and follow up with primary care as scheduled. I have explained the finding and plan with the patient's family members. They understood. All the pertinent questions answered. cc: Romain Arauz MD
[2017-03-10] MEDS: ASPIRIN PO SCH (09:57)
--- NOTE | 2017-03-10 13:00 | DISCHARGE SUMMARY ---
ADMISSION DATE: 03/08/2017 DISCHARGE DATE: 03/10/2017 HISTORY AND HOSPITAL COURSE: He is followed currently by Dr. Marvin Welsh at [place]. We have also seen him here recently with hospitalist service. He presented with bleeding from his rectum, 1 episode. He is a 81-year-old, recently admitted for hyperosmolar hyperglycemic event, new onset diabetes, started on insulin. He has been doing well at home. He is also on Brilinta. This is for peripheral vascular disease. He presented after an episode of bleeding. Admitted to the hospital. We prepped him. No further bleeding. Had colonoscopy which revealed some distal colitis secondary to probably radiation. We are going to hold the Brilinta. His hematocrit and hemoglobin were stable. No further sign of bleeding. [place] he could go home on 03/10/2017. DISCHARGE MEDICATIONS: He will be on aspirin 81 mg a day, Prilosec 40 mg a day, Zocor 40 mg a day. Note his lab, blood sugars remained fairly well controlled and he was not on any insulin. We are going to see if we can start him on some metformin and maybe he will not require any insulin. He will follow up with Lisa Arguello, nurse practitioner, and set up that follow up for a couple of weeks. cc: Jonathan Bowman MD
[2017-03-10 14:12] VITALS: BP 165/62
[2017-03-11] MEDS ORDERED: PRILOSEC PO SCH (07:00)
== END 2017-03-10 17:06 | disposition home or self-care (01) ==
LOC: ED 02:03 → SUATTDRO 06:24 → 3N 06:24
PROVIDERS: ATTEND Emergency Medicine